=== PATIENT | female | born 1990 | race Caucasian/White ===

== ENCOUNTER 2023-07-01 08:45 | Outpatient (AMB) | payer OTHER, SELFPAY ==
--- NOTE | 2023-07-01 10:10 | MHC.OFFWIV ---
Intake Vital Signs 07/01/23 10:18 Weight 307 lb BP 140/76 H Blood Pressure Location Rt brachial Position Sitting Pulse 86 Pulse Source Pulse Oximeter Pulse Oximetry (%) 97 Oxygen Delivery Method Room Air Intake Visit Reasons: EP, left eye discharge [phone] Intake Note: Patient here for elevated BP at night and some for left eye discharge and redness. denies blurred vision Patient Tobacco Use Status: Never used Tobacco Allergies montelukast [From Singulair] Adverse Reaction (Severe, Verified 07/01/23 10:11) suicidal thoughts glipizide Adverse Reaction (Mild, Verified 07/01/23 10:11) Rash Sulfa (Sulfonamide Antibiotics) Adverse Reaction (Mild, Verified 07/01/23 10:11) Rash Do you need a note to return to daycare/school/sports/work: No HPI EP, left eye discharge [phone] HPI Details 33-year-old female patient presents today with left eye redness and irritation over the last several days. She reports that she has seasonal allergies, and typically takes antihistamines daily, however missed these doses about 3 days in a row, eyes became very itchy, and irritated after rubbing them. Denies any blurry vision or vision changes. Has been having some clear drainage. Patient also wishes to discuss several instances of high blood pressure, systolic BP is in the 180s, according to her watch/rashaun. This is happening usually at night. She is wearing CPAP and denies any issues with it. BP today 140/76. Denies any headache, vision changes, chest pain, palpitations, shortness of breath. [facility] Social History Patient Tobacco Use Status: Never used Tobacco Review of Systems Const All systems reviewed & are unremarkable except as noted in HPI and below Physical Exam Vital Signs: Last Vital Signs Pulse 86 07/01/23 10:18 BP 140/76 H 07/01/23 10:18 Pulse Ox 97 07/01/23 10:18 Oxygen Delivery Method Room Air 07/01/23 10:18 Const General: cooperative, healthy appearing, comfortable and no acute distress HEENT Head: Yes normal to inspection Ears: hearing grossly normal bilaterally General nose exam: Normal external nose present Face and sinus: Yes normal facial exam Eyes Conjunctivae: conjunctival abnormal left conjunctival injection diffuse and discharge mucoid Pupils: Equal, round and reactive pupils present EOM: EOMs intact bilaterally Direct Ophthalmoscopy: normal light reflex and no photophobia Neck Neck: Yes no lymphadenopathy Resp Effort & Inspection: normal respiratory effort and able to speak in complete sentences Auscultation: clear to auscultation bilaterally Cardio Jugular venous distension: no JVD Palpation: normal PMI Rate: regular rate Rhythm: regular rhythm Skin General skin exam: no rashes or lesions noted Neuro Cranial nerves: Yes Equal, round and reactive pupils present Extrem General: Yes capillary refill normal and Yes no clubbing, cyanosis or edema Psych Appearance: grossly normal Mental Status: mental status grossly normal Speech and movement: Normal speech and movement present Assessment & Plan Assessment & Plan (1) Conjunctivitis, left eye: Code(s): H10.9 - Unspecified conjunctivitis Qualifiers: Conjunctivitis type: acute Acute conjunctivitis type: atopic Qualified Code(s): H10.12 - Acute atopic conjunctivitis, left eye Plan: Symptoms consistent atopic conjunctivitis. Advised adequate hand hygiene, and trying to avoid touching eye. I advised staining from applying any eye makeup until this is resolved. Patient has done well previously on prednisolone drops, and antihistamine drops. I have prescribed these and reviewed indications, use, possible side effects of these. If she does not improve with time and these measures, she should return to the clinic or contact financial institution president for evaluation. She also reports some increased BP readings in her her watch/rashaun. She has a PCP appointment next week at [facility], and I encouraged her to address this with her PCP at that time. Certainly if her blood pressures increase more persistently, she should go to the emergency department for evaluation. Medications: New cetirizine 0.24% 1 drp ophthalmic (eye) BID PRN 30 ea 0RF itching H10.12 - Acute atopic conjunctivitis, left eye prednisolone acetate 0.12% 1 drp ophthalmic (eye) TID 10 mL 0RF 5 days H10.12 - Acute atopic conjunctivitis, left eye Coding Level of Care Code Est Pt Level 3 (27656) Diagnoses Acute atopic conjunctivitis of left eye H10.12 Conjunctivitis type: acute Acute conjunctivitis type: atopic
[2023-07-01 10:18] VITALS: BP 140/76; PULSE 86; O2SAT 97
== END 2023-07-01 10:52 | disposition home or self-care (01) ==
PROVIDERS: PCP Internal Medicine; Visit Provider Nurse Practitioner Family
DX: H10.12 Acute atopic conjunctivitis, left eye (principal)
CPT/HCPCS: 99213